=== PATIENT | male | born 1950 | race Hispanic/Latino ===

== ENCOUNTER → 2018-10-18 | Outpatient (CLI) | payer MEDICARE ==
--- NOTE | 2018-10-30 04:58 | Polysomnography ---
DATE OF STUDY: 10/18/2018 REFERRING PHYSICIAN: Dewayne Bynum Diagnostic polysomnogram, type 3 portable monitor. HISTORY: Mr. Cedillo is a 68-year-old gentleman with excessive sleepiness as well as refractory cough. PAST MEDICAL HISTORY: The patient has a past medical history of ulcerative colitis, thyroid disease, and GERD. CURRENT MEDICATIONS: Include Pentasa, losartan, levothyroxine, sucralfate, gemfibrozil, and simvastatin. [place] Sleepiness Scale score is 10. BMI is 32.8. The patient presents for a diagnostic polysomnogram, type 3 portable monitoring system (home sleep study). FINDINGS: Polysomnogram was performed using 8-channel system noting the leg EMG was not hooked up. Total sleep time was 465.5 minutes with sleep efficiency recorded at 100%. A total of two obstructive apneas, one central apnea, and 47 hypopneas were noted for apnea-hypopnea index of 6.4 events per hour. Lowest oxygen saturation recorded at 83%. Of note, baseline oxygen saturation was often from 90% to 96%, which is low. INTERPRETATION: This is an abnormal Type 3 portable monitoring, home sleep study due to the presence of. 1) Mild obstructive sleep apnea. This is supported by oxygen desaturations, snoring, and increased apnea-hypopnea index. Multiple factors can be contributory such as obesity, thyroid disease, and structural/obstructive abnormalities in the upper airway. Evaluation and management of these factors associated with sleep apnea would be beneficial. Usual recommendations is auto-CPAP with common settings at 4-20 cm of water, all necessary supplies, mask with it, and heated humidifier. Clinical correlation is recommended. 2) Nocturnal hypoxemia, probably with a non-apneic component. A cardiopulmonary evaluation may be helpful. This may be corrected by CPAP or the patient may need additional supplemental oxygen, but clinical correlation is recommended. MD JANIE Mcgee Certified in Sleep Medicine GMN/MODL /[id number]
== END ==
LOC: SLEEP 19:10
PROVIDERS: ATTEND Internal Medicine Critical Care Medicine
DX: G47.33 Obstructive sleep apnea (adult) (pediatric) (principal)
CPT/HCPCS: 95806

== ENCOUNTER → 2018-11-21 | Outpatient (CLI) | payer MEDICARE ==
[~2018-11-21] MED LIST: ALBUTEROL SULF 0.083% NEB SOLN 3 ML NEB ONE
--- NOTE | 2018-12-01 00:33 | Pulmonary Function Test ---
DATE OF STUDY: 11/21/2018 REFERRING PHYSICIAN: Dewayne Bynum SPIROMETRY: Spirometry demonstrates evidence of severe restriction. FEV1 was 1.53 L or 49.2% predicted and FVC was 1.75 L or 41.7% predicted in the setting of normal FEV1/FVC ratio. After bronchodilator administration, there was no statistically significant change upon bronchodilator administration. The patient was coughing very often during the test. The patient could not stay on the mouthpiece well due to the coughing and he was not able to therefore perform the lung volumes nor diffusing capacity well. FLOW VOLUME LOOP: Without any gross abnormalities, but mildly limited. Narrow curve consistent with restrictive effort. Forced expiratory time 1.51 second. SUMMARY: Severe restriction. Limited pulmonary function tests as above. MD TERA Mcgee/ALLISON /[id number]
== END ==
LOC: RESP 13:30
PROVIDERS: ATTEND Internal Medicine Critical Care Medicine
DX: R05 Cough (principal); K52.89 Other specified noninfective gastroenteritis and colitis; K21.9 Gastro-esophageal reflux disease without esophagitis; G47.33 Obstructive sleep apnea (adult) (pediatric); E66.9 Obesity, unspecified
CPT/HCPCS: 94060; 94727; 94729

== ENCOUNTER → 2024-05-17 | Day surgery (SDC) | payer MEDICARE ==
[2024-05-10 12:38] LABS: BASOPHILS % 0.2 % (0.0-1.0); EOSINOPHILS # (AUTO) 0.1 (0.0-0.4); EOSINOPHILS % 0.6 % (0.0-6.0); HEMATOCRIT 36.9 % (38.2-49.6); LYMPHOCYTES # (AUTO) 1.1 (1.0-3.2); LYMPHOCYTES % 12.8 % (18.0-39.1); MEAN CORPUSCULAR HEMOGLOBIN 31.8 pg (28-32); MEAN CORPUSCULAR HGB CONC 35.2 g/dL (31-35); MEAN CORPUSCULAR VOLUME 90.2 fL (81-99); MONOCYTES # (AUTO) 0.6 (0.2-0.8); MONOCYTES % 6.5 % (4.4-11.3); NEUTROPHILS % 79.3 % (38.7-80.0); PLATELET COUNT 353 x10e3/uL (140-360); RED BLOOD COUNT 4.09 x10e6/uL (4.3-5.7); RED CELL DISTRIBUTION WIDTH 15.3 % (11.7-14.4); WHITE BLOOD COUNT 8.81 x10e3/uL (4.8-10.8)
[~2024-05-17] MED LIST changes: +ACETAMINOPHEN-1 EAC3; +AIMOVIG AU70 MG/1 ML; -ALBUTEROL SULF 0.083% NEB SOLN 3 ML NEB ONE; +ALBUTEROL1.25 MG/3 NEB; +ALENDRONATE SOD10 MG; +ATORVASTATIN CA20 MG PO; +BREO ELLIPTA 21 EACH INH; +CYMBALTA20 MG PO; +ERGOCALCIFEROL1 GM; +FENTANYL CITRATE/PF 100MCG/2 ML INJ ONE; +LEUPROLIDE1 MG/0.2 M; +LEVOTHYROXINE75 MCG PO; +LIDOCAINE HCL 2% LOCAL INJ 5 ML SDV VIAL INJ ONE; +LOSARTAN POTAS100 MG PO; +LYRICA100 MG PO; +MEMANTINE HCL5 MG; +METHOCARBAMOL750 MG PO; +MIDAZOLAM HCL 2 MG/2 ML VIAL ONE; +NASAL SPRAY30 ML; +ONDANSETRON ODT8 MG PO; +OZEMPIC2 MG/0.75; +PLAQUENIL200 MG PO; +PREDNISONE5 M1; +PROPOFOL IV EMULSION 10 MG/ML 20 ML VIAL ONE; +PROTONIX20 MG PO; +ZYTIGA250 MG
[2024-05-17] MEDS: LACTATED RINGER'S 1,000 ML ONE (09:14)
[2024-05-17] MEDS: PHENYLEPHRINE HCL 2 ML DROPS ONE (09:14)
[2024-05-17] MEDS: CYCLOPENTOLATE HCL 2% OPTH SOLN 2 ML BTL OP ONE (09:15)
[2024-05-17] MEDS: GATIFLOXACIN(OPTH) 5 ML LIQD ONE (09:15)
[2024-05-17 11:55] VITALS: BP 164/60; PULSE 55; RESP 16; TEMP 97.2; O2SAT 97
== END | disposition home or self-care (01) ==
LOC: OR 07:39
PROVIDERS: ATTEND Ophthalmology
DX: H25.11 Age-related nuclear cataract, right eye (principal); E11.9 Type 2 diabetes mellitus without complications; E78.5 Hyperlipidemia, unspecified; J45.909 Unspecified asthma, uncomplicated; E03.9 Hypothyroidism, unspecified; K58.9 Irritable bowel syndrome, unspecified; M06.9 Rheumatoid arthritis, unspecified; Z01.812 Encounter for preprocedural laboratory examination; Z79.84 Long term (current) use of oral hypoglycemic drugs; Z79.85 Long-term (current) use of injectable non-insulin antidiabetic drugs; Z79.899 Other long term (current) drug therapy; Z87.01 Personal history of pneumonia (recurrent)
CPT/HCPCS: 36415 ×2; 66984; 82948; 85025; J2003; J2704; J7121; V2632; J2250